=== PATIENT | female | born 1995 | race Caucasian/White ===

== ENCOUNTER 2018-06-16 01:46 | Emergency (ER) | payer MEDICAID ==
[~2018-06-16] VITALS: Ht 167.6 cm; Wt 82.0 kg
[2018-06-16] MEDS ORDERED: ONDANSETRON HCL 4MG/2ML INJ IV STA (02:44)
[2018-06-16] MEDS ORDERED: MAGNESIUM/ALUMINUM HYDROXIDE/SIMETHICONE 30ML UDC PO ONE (02:45)
[2018-06-16] MEDS ORDERED: VISCOUS LIDOCAINE 2% 15 ML UDC PO ONE (02:45)
[2018-06-16] MEDS ORDERED: ASPIRIN 81MG TABLET PO ONE (02:45)
[2018-06-16 03:41] LABS: CHLORIDE 107 mEq/L (98-107)
[2018-06-16 03:54] LABS: BASOPHILS % 0.5 % (0.0-2.0); EOSINOPHILS % 0.5 % (0.0-5.0); HEMATOCRIT. 41.2 % (36.0-48.0); HEMOGLOBIN. 13.3 g/dL (12.0-16.0); LYMPHOCYTES % 17.1 % (20.0-50.0); MEAN CORPUSCULAR HEMOGLOBIN 26.4 pg (28.0-32.0); MEAN CORPUSCULAR VOLUME 81.5 fL (81.0-99.0); MEAN PLATELET VOLUME 8.3 fl (7.4-10.4); MONOCYTES % 5.1 % (2.0-8.0); NEUTROPHILS % 76.8 % (40.0-76.0); PLATELET 301 x1000/uL (130-400); RED BLOOD CELL COUNT 5.05 mill/uL (4.2-5.4); RED CELL DISTRIBUTION WIDTH 14.7 % (11.6-14.6)
[2018-06-16] MEDS ORDERED: KETOROLAC 30MG/ML VIAL IV ONE (05:30)
[2018-06-16] MEDS: KETOROLAC 30MG/ML VIAL IV NR ×2 (06:12→06:14)
[2018-06-16 07:07] VITALS: BP 117/69
== END 2018-06-16 07:10 | disposition home or self-care (01) ==
LOC: ER 01:46
DX: R07.9 Chest pain, unspecified (principal); J06.9 Acute upper respiratory infection, unspecified; M94.0 Chondrocostal junction syndrome [Tietze]; B34.9 Viral infection, unspecified; F17.200 Nicotine dependence, unspecified, uncomplicated
CPT/HCPCS: 36415; 71045; 80053; 81025; 83880; 84484; 85025; 93005; 96374; 96375; 99284; J1885; J2405

== ENCOUNTER 2018-10-21 14:13 | Emergency (ER) | payer MEDICAID ==
[~2018-10-21] VITALS: Ht 165.1 cm; Wt 103.0 kg
[2018-10-21] MEDS ORDERED: ONDANSETRON 4MG ODT PO ONE (14:45)
[2018-10-21] MEDS ORDERED: MORPHINE SULFATE 10 MG/ML CPJ IM ONE (14:45)
[2018-10-21] MEDS ORDERED: KETOROLAC 60MG/2ML VIAL IM ONE (14:45)
[2018-10-21 17:00] VITALS: BP 130/75
== END 2018-10-21 17:30 | disposition home or self-care (01) ==
LOC: ER 14:13
DX: S63.502A Unspecified sprain of left wrist, initial encounter (principal); F12.10 Cannabis abuse, uncomplicated; Z90.89 Acquired absence of other organs; Y08.89XA Assault by other specified means, initial encounter; Y93.89 Activity, other specified; Y92.89 Other specified places as the place of occurrence of the external cause; Y99.8 Other external cause status
CPT/HCPCS: 29105; 73090; 73110; 96372; 99283; J1885; J2270; Q0162

== ENCOUNTER 2021-04-24 18:34 | Emergency (ER) | payer MEDICAID ==
[~2021-04-24] VITALS: Ht 170.2 cm; Wt 91.0 kg
[~2021-04-24 18:34] MED LIST: AMOX-424 MT
[2021-04-24] MEDS ORDERED: ACETAMINOPHEN 325MG TABLET PO PRN (19:00)
[2021-04-24 19:37] LABS: BASOPHILS % 0.4 % (0.0-2.0); EOSINOPHILS % 1.3 % (0.0-5.0); HEMATOCRIT. 34.5 % (36.0-48.0); HEMOGLOBIN. 11.6 g/dL (12.0-16.0); LYMPHOCYTES % 23.2 % (20.0-50.0); MEAN CORPUSCULAR HEMOGLOBIN 27.9 pg (28.0-32.0); MEAN CORPUSCULAR VOLUME 82.9 fL (81.0-99.0); MEAN PLATELET VOLUME 7.8 fl (7.4-10.4); NEUTROPHILS % 70.1 % (40.0-76.0); PLATELET 317 x1000/uL (130-400); RED BLOOD CELL COUNT 4.16 mill/uL (4.2-5.4); RED CELL DISTRIBUTION WIDTH 13.6 % (11.6-14.6)
[2021-04-24 19:44] LABS: CHLORIDE 112 mEq/L (98-107)
[2021-04-24 20:08] LABS: B-HCG QUANTITATIVE 9261 mIU/mL (<3)
[2021-04-24 20:57] LABS: CLARITY URINE CLEAR (CLEAR); COLOR URINE YELLOW (YELLOW); KETONES URINE NEGATIVE (NEGATIVE); LEUKOCYTE ESTERASE URINE 2+ (NEGATIVE); NITRITE URINE POSITIVE (NEGATIVE); OCCULT BLOOD URINE NEGATIVE (NEGATIVE); PROTEIN URINE TRACE (NEGATIVE); SPECIFIC GRAVITY URINE 1.016 (1.005-1.030); UROBILINOGEN URINE 0.2 E.U./dL (0.2-1.0)
[2021-04-24] MEDS ORDERED: CEFAZOLIN 1000MG PREMIX 50 ML IV ONE (22:30)
[2021-04-24] MEDS ORDERED: SODIUM CHLORIDE 0.9% 1,000 ML IV ONE (22:30)
[2021-04-24] MEDS ORDERED: ONDA4TAB5 MT (22:59)
[2021-04-24] MEDS ORDERED: CEPH500C2 MT (22:59)
[2021-04-24 23:19] VITALS: BP 105/56
== END 2021-04-24 23:20 | disposition home or self-care (01) ==
LOC: ER 18:39
DX: O23.12 Infections of bladder in pregnancy, second trimester (principal); O26.892 Other specified pregnancy related conditions, second trimester; J45.909 Unspecified asthma, uncomplicated; Z90.49 Acquired absence of other specified parts of digestive tract; Z3A.19 19 weeks gestation of pregnancy; Z91.018 Allergy to other foods
CPT/HCPCS: 36415; 76805; 80053; 81003; 84702; 85025; 86850; 86900; 86901; 87077; 87086; 87186; 93005; 99284; J7030; Z7610

== ENCOUNTER 2023-11-04 19:54 | Emergency (ER) | payer SELFPAY ==
[~2023-11-04] VITALS: Ht 167.6 cm; Wt 75.0 kg
[~2023-11-04 19:54] MED LIST changes: +CEPH500C2 MT; +ONDA4TAB5 MT
[2023-11-04 19:59] VITALS: TEMP 100.8; O2SAT 100
[2023-11-04 20:30] LABS: BASOPHILS % 0.8 % (0.0-2.0); EOSINOPHILS % 0.1 % (0.0-5.0); HEMATOCRIT. 39.8 % (36.0-48.0); HEMOGLOBIN. 13.3 g/dL (12.0-16.0); LYMPHOCYTES % 14.9 % (20.0-50.0); MEAN CORPUSCULAR HEMOGLOBIN 27.3 pg (28.0-32.0); MEAN CORPUSCULAR HGB CONC 33.3 g/dL (31.0-37.0); MEAN CORPUSCULAR VOLUME 81.9 fL (81.0-99.0); MEAN PLATELET VOLUME 7.8 fl (7.4-10.4); MONOCYTES % 7.3 % (2.0-8.0); NEUTROPHILS % 76.9 % (40.0-76.0); PLATELET 356 x1000/uL (130-400); RED BLOOD CELL COUNT 4.86 mill/uL (4.2-5.4); RED CELL DISTRIBUTION WIDTH 14.7 % (11.6-14.6)
[2023-11-04 20:39] LABS: CHLORIDE 102 mEq/L (98-107); SODIUM 134 mEq/L (136-145)
[2023-11-04 20:40] LABS: CALCIUM 9.6 mg/dL (8.7-10.4); CARBON DIOXIDE 25 mEq/L (21-32); PROTHROMBIN TIME 11.5 sec (9.6-11.0)
[2023-11-04 20:45] LABS: CREATININE 0.8 mg/dL (0.6-1.0); GLUCOSE 108 mg/dL (70-105); UREA NITROGEN BLOOD 6 mg/dL (9-23)
[2023-11-04 20:46] LABS: HCG SCREEN NEGATIVE
[2023-11-04 20:47] LABS: ALANINE AMINOTRANSFERASE 41 IU/L (10-49); ASPARTATE AMINOTRANSFERASE 35 IU/L (<34); BILIRUBIN DIRECT 0.6 mg/dL (<=3.0); BILIRUBIN TOTAL 1.5 mg/dL (0.1-1.0)
[2023-11-04 20:48] LABS: PROTEIN TOTAL 8.6 g/dL (6.0-8.3)
[2023-11-04 22:48] LABS: CLARITY URINE CLOUDY (CLEAR); COLOR URINE DARK YELLOW (YELLOW); GLUCOSE URINE NEGATIVE (NEGATIVE); KETONES URINE NEGATIVE (NEGATIVE); LEUKOCYTE ESTERASE URINE 2+ (NEGATIVE); NITRITE URINE POSITIVE (NEGATIVE); OCCULT BLOOD URINE 2+ (NEGATIVE); PH URINE 6.5 (4.5-8.0); PROTEIN URINE 1+ (NEGATIVE); SPECIFIC GRAVITY URINE 1.019 (1.005-1.030)
[2023-11-04 23:03] LABS: BACTERIA URINE 4+; RBC URINE 15-25 /hpf (0-2); SQUAMOUS EPITHELIAL CELL URINE 2+ /lpf (RARE/1+); WBC URINE 50-100 /hpf (0-2)
[2023-11-04 23:04] LABS: MUCUS URINE 2+ /lpf (< = 2+)
[2023-11-05] MEDS: MORPHINE SULFATE 4 MG/ML INJ (FOR IV/IM USE) IM ONE (01:02)
[2023-11-05] MEDS: SODIUM CHLORIDE 0.9% 1000ML BAG (SEPSIS BOLUS) IV ONE (01:02)
[2023-11-05] MEDS ORDERED: CEFP200T13 MT (01:15)
[2023-11-05] MEDS: CEFTRIAXONE 1GM/50ML 50 ML IV ONE (01:16)
[2023-11-05 03:41] VITALS: BP 122/70; PULSE 94; RESP 18
== END 2023-11-05 03:42 | disposition home or self-care (01) ==
LOC: ER 19:54
DX: N12 Tubulo-interstitial nephritis, not specified as acute or chronic (principal); J45.909 Unspecified asthma, uncomplicated; F12.90 Cannabis use, unspecified, uncomplicated; Z87.442 Personal history of urinary calculi; Z90.49 Acquired absence of other specified parts of digestive tract; Z91.018 Allergy to other foods
CPT/HCPCS: 99284; 80076; 80048; 81003; 84703; 83690; 85025; 85610; 87086; 87186; 87077; 36415; 96365; 96366; 96372; J2270; J7030; J0696